=== PATIENT | male | born 1965 | race African-American/Black ===

== ENCOUNTER 2019-10-11 09:07 | Emergency (ER) | payer OTHER ==
[~2019-10-11] VITALS: Ht 175.3 cm; Wt 88.5 kg
[2019-10-11] MEDS ORDERED: NORCO 5-325 TA1 EAC1 PO (09:53)
[2019-10-11] MEDS ORDERED: FLEXERIL PO (09:53)
[2019-10-11] MEDS ORDERED: MOBIC15 MG PO (09:53)
[2019-10-11 10:40] VITALS: BP 128/90
== END 2019-10-11 10:47 | disposition home or self-care (01) ==
LOC: ER 09:07
DX: M54.42 Lumbago with sciatica, left side (principal); G43.909 Migraine, unspecified, not intractable, without status migrainosus; I10 Essential (primary) hypertension; E78.00 Pure hypercholesterolemia, unspecified; G89.29 Other chronic pain; M19.90 Unspecified osteoarthritis, unspecified site

== ENCOUNTER 2020-01-19 13:40 | Emergency (ER) | payer OTHER ==
[~2020-01-19] VITALS: Ht 175.3 cm; Wt 83.9 kg
[~2020-01-19 13:40] MED LIST: FLEXERIL PO; MOBIC15 MG PO; NORCO 5-325 TA1 EAC1 PO
[2020-01-19] MEDS ORDERED: NORCO 5-325 TA1 EAC2 PO (14:38)
[2020-01-19] MEDS ORDERED: MOBIC7.5 MG PO (14:38)
[2020-01-19] MEDS ORDERED: NORFLEX100 MG PO (14:38)
[2020-01-19] MEDS ORDERED: TRIAMCINOLONE A80 G2 TOP (14:41)
[2020-01-19 14:45] VITALS: BP 133/90
== END 2020-01-19 14:49 | disposition home or self-care (01) ==
LOC: ER 13:40
DX: G89.29 Other chronic pain (principal); M25.512 Pain in left shoulder; L20.9 Atopic dermatitis, unspecified; I10 Essential (primary) hypertension; E78.00 Pure hypercholesterolemia, unspecified; G43.909 Migraine, unspecified, not intractable, without status migrainosus; Z88.6 Allergy status to analgesic agent